=== PATIENT | female | born 1945 | race Caucasian/White ===

== ENCOUNTER → 2023-12-01 07:53 | Outpatient (REF) | payer MEDICARE, BC, SELFPAY | LOC: WDC 07:53 | PROVIDERS: ATTENDING PHYSICIAN Obstetrics & Gynecology; FAMILY PHYSICIAN Family Medicine | DX: Z12.31 Encounter for screening mammogram for malignant neoplasm of breast (principal) | CPT/HCPCS: 77063; 77067 ==

== ENCOUNTER → 2024-01-03 09:11 | Outpatient (REF) | payer MEDICARE, BC, SELFPAY | LOC: RAD 09:11 | PROVIDERS: ATTENDING PHYSICIAN Family Medicine | DX: M81.0 Age-related osteoporosis without current pathological fracture (principal) | CPT/HCPCS: 77080 ==

== ENCOUNTER → 2024-12-06 08:50 | Outpatient (REF) | payer MEDICARE, BC, SELFPAY | LOC: WDC 08:50 | PROVIDERS: ATTENDING PHYSICIAN Obstetrics & Gynecology; FAMILY PHYSICIAN Family Medicine | DX: Z12.31 Encounter for screening mammogram for malignant neoplasm of breast (principal) | CPT/HCPCS: 77063; 77067 ==

== ENCOUNTER 2025-06-28 16:53 | Inpatient (IN) | payer MEDICARE, BC, SELFPAY ==
[2025-06-28 13:37] VITALS: BP 157/88
[2025-06-28 16:00] VITALS: BP 142/68
[2025-06-28 16:04] VITALS: BMI 27.9
--- NOTE | 2025-06-28 16:05 | ED.GENMED ---
History of Present Illness
<Yun Stephens PA-C - Last Filed: 06/28/25 16:22>
General
Chief Complaint: Skin Problem
Source: patient
Exam Limitations: none
Time Seen by Provider: 06/28/25 14:40
Nursing documentation reviewed up to this point in time: agreed with
History of Present Illness
History of Present Illness:
see MDM
Past History
<Yun Stephens PA-C - Last Filed: 06/28/25 16:22>
Past History
ED Past Medical History: HTN, Hypercholesterolemia and Other (Colitis)
ED Past Surgical History: None
Social History
Tobacco: Non-smoker
Alcohol: None
Drug: None
Personal:
Living: with family
Employment: Retired
Family History
Family History: Other (Son sick with similar illness)
Review of Systems
<Yun Stephens PA-C - Last Filed: 06/28/25 16:22>
Review of Systems
Allergies reviewed?: Yes
All Other Systems: Not applicable
Phy Exam
<YEN Flores Last Filed: 06/28/25 16:22>
Physical Exam
Physical Exam:
ee MDM
Course
<Yun Stephens PA-C - Last Filed: 06/28/25 16:22>
Orders/Labs/Results
Orders:
Orders
06/28/25 15:31
Complete Blood Count/With Diff Urgent
Comprehensive Metabolic Panel Urgent
Ampicillin/Sulbactam 3 G [Unasyn] 3 gm 0.9% Sodium Chloride 100 ml [Nss] 100 ml IV NOW
06/28/25 15:45
Blood Culture Q30M
SANDHYA Source: Blood/Venous
Specimen Description:
06/28/25 16:15
Blood Culture Q30M
SANDHYA Source: Blood/Venous
Specimen Description:
Abnormal Lab Results
06/28/25
16:02
RBC 3.69 L 10^6/uL
(4.20-5.40)
Hgb 11.4 L g/dL
(12.0-16.0)
Hct 33.7 L %
(37.0-47.0)
Absolute Monos (auto) 0.7 H 10^3/uL
(0.1-0.6)
Lymphocytes % 16.1 L %
(20.5-51.1)
06/28/25 16:02
Vital Signs
Initial and Last Documented VS:
Initial Vital Signs
Temp Pulse Resp BP Pulse Ox
37.4 C 89 16 157/88 98
06/28/25 13:37 06/28/25 13:37 06/28/25 13:37 06/28/25 13:37 06/28/25 13:37
Last Documented Vital Signs
Temp Pulse Resp BP Pulse Ox
37.4 C 89 16 157/88 98
06/28/25 13:37 06/28/25 13:37 06/28/25 13:37 06/28/25 13:37 06/28/25 16:06
<Db Matos, - Last Filed: 06/28/25 16:16>
Orders/Labs/Results
Orders:
Orders
06/28/25 15:31
Complete Blood Count/With Diff Urgent
Comprehensive Metabolic Panel Urgent
Ampicillin/Sulbactam 3 G [Unasyn] 3 gm 0.9% Sodium Chloride 100 ml [Nss] 100 ml IV NOW
06/28/25 15:45
Blood Culture Q30M
SANDHYA Source: Blood/Venous
Specimen Description:
06/28/25 16:15
Blood Culture Q30M
SANDHYA Source: Blood/Venous
Specimen Description:
Abnormal Lab Results
06/28/25
16:02
RBC 3.69 L 10^6/uL
(4.20-5.40)
Hgb 11.4 L g/dL
(12.0-16.0)
Hct 33.7 L %
(37.0-47.0)
Absolute Monos (auto) 0.7 H 10^3/uL
(0.1-0.6)
Lymphocytes % 16.1 L %
(20.5-51.1)
06/28/25 16:02
Vital Signs
Initial and Last Documented VS:
Initial Vital Signs
Temp Pulse Resp BP Pulse Ox
37.4 C 89 16 157/88 98
06/28/25 13:37 06/28/25 13:37 06/28/25 13:37 06/28/25 13:37 06/28/25 13:37
Last Documented Vital Signs
Temp Pulse Resp BP Pulse Ox
37.4 C 89 16 157/88 98
06/28/25 13:37 06/28/25 13:37 06/28/25 13:37 06/28/25 13:37 06/28/25 16:06
Omarlt;Yun Stephens PA-C - Last Filed: 06/28/25 16:22>
MDM/Problems Addressed
Differential Diagnosis Includes:
see MDM
MDM/Problems Addressed:
Note:
CHIEF COMPLAINT(S)
Right arm swelling and redness following a cat scratch.
HISTORY OF PRESENT ILLNESS
The patient is a 79-year-old female with h/o crohn's on mercaptopurine who presents with significant swelling and redness in her right hand up her arm following a cat scratch. The incident occurred yesterday morning while attempting to retrieve her
cat from under the bed. The cat scratched her with its claws and then bit her R wrist volar region, resulting in rapid swelling described as 'twice the size' today. The severe swelling indicates lymphatic involvement, as it tracks along a lymph node
path potentially leading to the heart. She experienced dizziness and continued to perform household activities. She was evaluated at an urgent care facility and then advised to seek further medical attention at the hospital due to the severity of
the symptoms.
she denies inabilty to move the wrist, lymph node swelling appreciated, fever, chills, rigors, cp, sob
PAST MEDICAL AND SURGICAL HISTORY
The patient has Crohns disease and has undergone dermatological procedures for lesion removal yesterday but has no history of cardiac problems or diabetes. The patient mentions a previous infection following a camper spot removal from her leg.
SOCIAL DETERMINANTS AFFECTING HEALTH
The patient lives with a high-sensitivity cat which is on Prozac.
ALLERGIES
No known allergies to antibiotics.
MEDICATIONS
The patient is currently on Mercaptopurine for Crohns disease at a reduced dose of 25 mg to minimize the risk of infection.
PHYSICAL EXAM
GENERAL: Alert , in no apparent distress
EYE: pupils equal and reactive
NECK: Supple
ENT: o/p clr, mmm.
CARDIAC: Regular rate and rhythm .
LUNGS: Clear breath sounds bilaterally, no acute respiratory distress, no wheezes/rales/rhonchi
ABDOMEN: Soft, without focal tenderness, no r/g, no cvat, normal bowel sounds
NEUROLOGICAL: Alert and oriented, no focal neuro deficits
SKIN: Warm and dry, patient has a small puncture wound to the volar aspect of her right wrist with no dorsal hand involvement but she has significant erythema and some soft tissue swelling of the wrist and volar forearm distally as well as a streak
of lymphatic erythema that spreads up into her upper arm but stops before her armpit
She has full tender painless range of motion of the elbow, wrist, shoulder
MUSCULOSKELETAL: As above, full range of motion of the joints
PSYCH: Normal and appropriate interaction.
Nursing notes reviewed and vital signs reviewed.
PROBLEM LIST
Acute:
- Right arm cellulitis secondary to cat scratch.
- Possible lymphangitis.
Chronic:
- Crohns disease
PLAN
- Admission for intravenous antibiotic therapy with Unasyn (Ampicillin/Sulbactam), a penicillin-based medication.
- Monitoring of the swelling progression, with markings to assess.
- Continue Crohns disease management with current Mercaptopurine dosing.
- Ensure the provision of a hospital room for overnight observation and continued treatment.
DIFFERENTIAL DIAGNOSIS
The Differential Diagnosis includes, in no particular order and is not limited to:
1. Cellulitis
2. Lymphangitis
3. Cat scratch disease
4. Vasculitis
5. Allergic reaction
6. Deep vein thrombosis
7. Abscess formation
8. Septic arthritis
9. Soft tissue sarcoma
10. Thrombophlebitis
Note:
Disposition:
SUMMARY OF ENCOUNTER
The patient, a 79-year-old female, presented to the emergency department due to rapid progression of redness and swelling in the right arm following a cat scratch and bite. She is immunocompromised due to Crohns disease and is on Mercaptopurine. The
swelling progressed in a lymphangitis-type pattern with a noticeable erythematous streak extending near the armpit. She reported minimal pain but experienced lightheadedness and fatigue. Given her immunocompromised state and the rapid progression of
symptoms, admission for intravenous antibiotic therapy and observation was deemed necessary.
DISPOSITION
Admit
ASSESSMENT
The patients presentation is consistent with cellulitis and possible lymphangitis secondary to a cat scratch and bite.
PLAN
The patient will be admitted for intravenous antibiotic therapy with Ampicillin/Sulbactam (Unasyn) and for observation of her symptoms.
MEDICATION RECONCILIATION
The patient will receive intravenous Ampicillin/Sulbactam (Unasyn) for her condition during the hospital stay. She is also advised to continue her current dose of Mercaptopurine for Crohns disease management.
MEDICAL DECISION MAKING
- Complexity of Data Reviewed: Chronic conditions affecting care include Crohns disease. Differential diagnosis includes cellulitis, lymphangitis, cat scratch disease, vasculitis, allergic reaction, deep vein thrombosis, abscess formation, septic
arthritis, soft tissue sarcoma, and thrombophlebitis.
- Data:
Category 1: None mentioned in the transcript.
Category 2: No independent interpretations of radiology or testing were mentioned in the transcript.
Category 3: None mentioned in the transcript.
-Risk: The decision for hospital admission was made due to the patients immunocompromised status and the severity of the symptoms. This includes antibiotic management which requires monitoring for potential complications related to the therapy and
the underlying condition of Crohns disease.
DIAGNOSIS
- Cellulitis of right upper limb secondary to cat bite, ICD-10: L03.113
- Immunocompromised patient with Crohns disease, ICD-10: K50.90
<Yun Stephens PA-C - Last Filed: 06/28/25 16:22>
*Pulse Oximetry
SaO2: 98
Oxygen Mode of Delivery: Room air
Patient hypoxic: no (98)
*Critical Care Note
Total Time (30-74mins, 75-104mins- exclusive of procedures): Not Applicable
ED Attending Note
<Yun Stephens PA-C - Last Filed: 06/28/25 16:22>
-
Portions of this chart may have been created with voice recognition software.� Occasional wrong word or��sound alike� substitutions may have occurred due to the inherent limitations of voice recognition software.
<Db Matos DO - Last Filed: 06/28/25 16:16>
ED Attending Note
Patient seen and examined by attending physician: Yes
I performed the substantive portion of visit, reviewed & personally made and approve the management plan that is documented in note by myself or IGNACIO.: Yes
ED Attending Note:
I evaluated the patient at bedside. The patient has a normal white blood cell count and vital signs are not consistent with sepsis however she has rather significant cellulitic changes with lymphangitic spread from the distal forearm up the right
upper extremity proximal to the elbow. Planning IV Unasyn/admission to the hospital
Discharge Plan
Departure
Patient Disposition: Admit
Date of Disposition: 06/28/25
Time of Disposition: 16:06
Admit to: Med/Surg
Presentation/result/management discussed w/ accepting /DO: Hospitalist
Condition: Fair
Covid-19: Not Applicable
Discharge Problem:
Cat bite, Lymphangitis
Prescriptions:
No Action
lansoprazole [Prevacid] 30 MG capsule,delayed release(DR/EC)
30 mg PO DAILY
simvastatin 20 MG tablet
20 mg PO QPM
mercaptopurine 50 MG tablet
25 mg PO DAILY
bupropion HCl [Wellbutrin SR] 150 MG tablet sustained-release 12 hr
150 mg PO BID
calcium carbonate [Oyster Shell Calcium 500] 500 MG tablet
500 mg PO BID 0RF
zinc sulfate 220 MG capsule
220 mg PO DAILY Qty: 20 0RF
lisinopril 5 MG tablet
5 mg PO DAILY Qty: 0 0RF
Rx Instructions:
Start taking again if BP is over 140 mm Hg
tizanidine 4 mg Tablet
4 mg PO HSPRN PRN (Reason: spasms)
tramadol 50 mg Tablet
50 mg PO TID
gabapentin 300 mg Capsule
300 mg PO BID
duloxetine 60 mg Capsule,Delayed Release(Dr/Ec)
60 mg PO DAILY
cholecalciferol (vitamin D3) [Vitamin D3] 25 mcg (1,000 unit) Tablet
25 mcg PO DAILY
famotidine 40 MG tablet
40 mg PO HS
ascorbic acid (vitamin C) [Vitamin C] 500 MG tablet
500 mg PO DAILY
Referrals:
Zuleyma Lew DO [Family Provider, Family Practice]
Interventions
Interventions:
*Risk Screen - Suicide Last Done: 06/28/25 13:37
*Neglect/Abuse Screening Last Done: 06/28/25 13:37
Discharge Date and Time
Print Language: SWISS
[2025-06-28 16:13] LABS: Hematocrit 33.7 % (37.0-47.0); Hemoglobin 11.4 g/dL (12.0-16.0); Mean Corp Hgb Conc. 33.8 g/dL (33.0-37.0); Mean Corpuscular Volume 91.3 fL (81.0-99.0); Nucleated Red Blood Cells % 0 %; Platelet Count 225 10^3/uL (130-400); Red Cell Dist. Width 13.4 % (11.5-14.5)
--- NOTE | 2025-06-28 16:23 | HPS.HSE ---
Addendum entered and electronically signed by Jade Martínez MD 06/28/25 17:46:
Seen and examined and discussed with nurse practitioner in detail I am in agreement with plan and management mentioned by nurse practitioner.
Seen and examined, accompanied by the daughter at the bedside, she is awake, alert oriented x 3, presented to the hospital after she had bitten by her cat yesterday while she was trying to put out under her bed to take it to the vet.
Developed right hand proximally around the thenar area and right forearm painful erythema with mild swelling, admittedly extremely painful last night otherwise denies any fever or chill or cough or congestion able to move her finger in her radial
pulses palpable and have good capillary refill.
Vital signs reviewed
Physical exam:
General: Awake, alert and oriented x3, not in distress and holds appropriate conversation.
HEENT: No active discharge, ecchymosis or bruising, moist lips, tongue and mucous membrane.
Eyes: No discharge or red conjunctiva, no nystagmus, pupils are reactive and equal
Neck:Supple, no JVD no bruit no goiter.
Respiratory: Normal AP contour and diameter, normal chest wall movement, normal respiratory effort, no respiratory distress,
Lungs: Good air entry bilaterally, no wheezing or rhonchi, no rales or crackles
Heart: S1, S2 regular, normal rate, no added sound.
Gastrointestinal: Positive bowel sounds, soft, nontender, no guarding or rigidity or organomegaly
Musculoskeletal: Painful erythematous left hand and extend proximally to left, no chest wall abnormality or tenderness. All joints and extremities have good range of motion, no muscle tenderness or any joint swelling or tenderness.
Extremities: Erythematous right hand and extended proximally to forearm and arm, No pitting edema, good peripheral pulses, good range of motion
Workup including labs, imaging, EKG and archive reviewed.
Assessment and plan:
60 But into cellulitis of the right upper extremity:
No evidence of compartment syndrome
Elevation of the right arm was discussed with the patient and the daughter
Continue IV antibiotic
Close monitoring of neurovascular compartment if any worsening of swelling may need evaluation by hand surgeon.
Tylenol as needed.
Hypertension: Continue lisinopril monitor vital signs
Dyslipidemia on simvastatin we will continue
All discussed with the patient and the family
Discussed with nurse practitioner
Original Note:
Family Physician
-
Family Physician: Zuleyma Lew
Chief Complaint
-
right arm ame bite.
History of Present Illness
79-year-old female with h/o crohn's on mercaptopurine, depression, anxiety, HTN, GERD< HLD who presents with significant swelling and redness in her right hand up her arm following a cat scratch. The incident occurred yesterday morning while
attempting to retrieve her cat from under the bed. The cat scratched her with its claws and then bit her R wrist volar region, resulting in rapid swelling described as 'twice the size' today. she noticed last night redness spreading upto her arm
today morning. She experienced dizziness and continued to perform household activities. She was evaluated at an urgent care facility and then advised to seek further medical attention at the hospital due to the severity of the symptoms. denied
fever, chills, chest pain, sob.denied BENITEZ. denied abdominal pain,n,v,d. denied dysuria or hematuria.
Patient received a dose of Unasyn, tetanus shot in ER. Blood culture sent from ER. Admitting for further manage
Medical History
Past Medical History
Past Medical History: Reports Other
Additional Past Medical History:
Anxiety, Crohn's disease, hypertension, thoracic back pain, hyperlipidemia, GERD
Past Surgical History: Reports Other
Additional Past Surgical History:
Right hand contraction
Social History
Tobacco: Non-smoker
Alcohol: Occasional
Drug: None
Living: With Family
Family History
Family History: Not pertinent
Allergies / Home Medications
Allergies reflects when Allergies were last updated in [facility].
Home Medications with original date entered in [facility]
Allergy/Medication List:
Allergies
Allergy/AdvReac Type Severity Reaction Status Date / Time
latex (Latex) Allergy Intermediate Rash Verified 06/28/25 13:37
Sulfa (Sulfonamide Allergy Rash Verified 06/28/25 13:37
Antibiotics)
sulfamethoxazole Allergy Rash Verified 06/28/25 13:37
trimethoprim Allergy Rash Verified 06/28/25 13:37
Home Medications
lansoprazole 30 mg capsule,delayed release (Prevacid) 30 mg PO DAILY Gastrointestinal issue 03/26/11
simvastatin 20 mg tablet 20 mg PO QPM High cholesterol 05/17/20
bupropion HCl 150 mg tablet,12 hr sustained-release (Wellbutrin SR) 150 mg PO BID Mental health 05/18/20
mercaptopurine 50 mg tablet 25 mg PO DAILY Crohn's Disease 05/18/20
calcium carbonate (Oyster Shell Calcium 500) 500 mg PO BID 05/20/20
lisinopril 5 mg tablet 5 mg PO DAILY Blood pressure ##0 05/20/20
zinc sulfate 50 mg zinc (220 mg) capsule 220 mg (4.4 x 50 mg zinc (220 mg)) PO DAILY #20 caps 05/20/20
ascorbic acid (vitamin C) 500 mg tablet (Vitamin C) 500 mg PO DAILY 06/28/25
cholecalciferol (vitamin D3) 25 mcg (1,000 unit) tablet (Vitamin D3) 25 mcg PO DAILY 06/28/25
duloxetine 60 mg capsule,delayed release 60 mg PO DAILY 06/28/25
famotidine 40 mg tablet 40 mg PO HS 06/28/25
gabapentin 300 mg capsule 300 mg PO BID 06/28/25
tizanidine 4 mg tablet 4 mg PO HSPRN PRN spasms 06/28/25
tramadol 50 mg tablet 50 mg PO TID 06/28/25
Review of Systems
-
Constitutional: Reports No Symptoms
EENT: Reports No Symptoms
Respiratory: Reports No Symptoms
Cardiac: Reports No Symptoms
Abdomen/GI: Reports No Symptoms
: Reports No Symptoms
Musculoskeletal: Reports No Symptoms
Skin: Reports Other (Right hand redness, swelling and cat bite penny)
Neurological: Reports No Symptoms
Endocrine: Reports No Symptoms
Hematologic/Lymphatic: Reports No Symptoms
Psych: Reports No Symptoms
Physical Exam
Vital Signs
Vital Signs
Temp Pulse Resp BP Pulse Ox
99.4 F 89 16 157/88 98
06/28/25 13:37 06/28/25 13:37 06/28/25 13:37 06/28/25 13:37 06/28/25 16:06
Physical Exam
General: Well Developed, Well Nourished and No Apparent Distress
HEENT: NormoCephalic, Moist mucous membranes and Atraumatic
Respiratory: Clear
Cardiac: S1/S2 and Regular Rhythm; No Murmur or Rub
GI: Soft, Non Tender, Non Distended and Normal Bowel Sounds; No Organomegaly
Rectal: Deferred by Provider
Musculoskeletal: No Clubbing, No Cyanosis and No Edema
Skin: Rash and Other (small puncture wound to the volar aspect of her right wrist with no dorsal hand involvement but she has significant erythema and some soft tissue swelling of the wrist and volar forearm distally as well as a streak of lymphatic
erythema that spreads up into her upper arm but stops before her armpit)
Neuro: AO x 3 and Nonfocal/grossly intact
Psych: Calm
Laboratory Results
-
06/28/25 16:02
Data Reviewed
-
Lab Data: Labs Reviewed by me
Impression/Plan
-
# Right upper extremities cellulitis/lymphangitis
- IV Unasyn
- Tylenol p.o. for fever up
- Patient received tetanus shot in ER
-Blood culture sent from ER
# Anemia of chronic disease
- Hemoglobin stable at 11.4
-Continue to monitor
#Essential hypertension. Blood pressure is stable
- Lisinopril continued
#Chron's disease
- On mercaptopurine
# Hyperlipidemia. Continue Zocor.
# GERD
- Prevacid, famotidine continued
# Depression/anxiety
-Duloxetine, bupropion continued
# DVT prophylaxis. Lovenox subcutaneous.
[2025-06-28 16:35] LABS: ALT (SGPT) 13 U/L (0-35); AST (SGOT) 20 U/L (14-36); Albumin 4.2 g/dl (3.5-5.0); Alkaline Phosphatase 108 U/L (38-126); Blood Urea Nitrogen 22 mg/dl (7-17); Calcium 9.7 mg/dl (8.4-10.2); Carbon Dioxide 26 mmol/L (22-30); Chloride 105 mmol/L (98-107); Estimated Creatinine Clearance 48 ml/min; Glucose 93 mg/dl (70-99); Potassium 4.0 mmol/L (3.5-5.1); Sodium 138 mmol/L (135-145); Total Protein 6.6 g/dl (6.3-8.2); eGFR > 60.00
[2025-06-28] MEDS: UNASYN IV ×2 (17:08→21:01)
[2025-06-28] MEDS: ADACEL 0.5 ML IM (17:08)
[2025-06-28 18:00] VITALS: BP 139/94
[2025-06-28 19:55] VITALS: BP 160/74; BMI 26.4
[2025-06-28] MEDS: LOVENOX 40 MG SC (20:57)
[2025-06-28] MEDS: NEURONTIN 300 MG PO (20:59)
[2025-06-28] MEDS: LIPITOR 10 MG PO (21:00)
[2025-06-28] MEDS: WELLBUTRIN SR (12 hour sustained release) 150 MG PO (21:02)
[2025-06-28] MEDS: ULTRAM 50 MG PO (21:04)
[2025-06-28] MEDS: PEPCID 40 MG PO (21:05)
[2025-06-28 23:16] VITALS: BP 155/79
--- NOTE | 2025-06-28 23:50 | PTCARENOTE ---
Pt arrived around 20:30 via stretcher and ambulated to bed. Pt oriented to Unit, side rails up, bed set in lowest position, call davis within reach. Will continue plan of care.
[2025-06-29] MEDS: UNASYN IV ×4 (01:57→20:54)
[2025-06-29 06:36] LABS: Hematocrit 33.2 % (37.0-47.0); Hemoglobin 11.2 g/dL (12.0-16.0); Mean Corp Hgb Conc. 33.7 g/dL (33.0-37.0); Mean Corpuscular Volume 91.5 fL (81.0-99.0); Platelet Count 204 10^3/uL (130-400); Red Cell Dist. Width 13.3 % (11.5-14.5)
[2025-06-29 07:25] VITALS: BP 136/72
--- NOTE | 2025-06-29 08:46 | W.PN.HOSP.TC ---
Today's Communication/Plan
-
Continue Unasyn
Assessment / Plan
Assessment / Plan
79-year-old female presents with right arm cellulitis secondary to cat bite.
Right upper extremity cellulitis secondary to cat bite
-- Has improved significantly overnight, afebrile and no white count
-- Continue Unasyn
# Anemia of chronic disease -hemoglobin stable
# Essential hypertension -continue home lisinopril
#Crohn's disease -continue mercaptopurine
#Hyperlipidemia - cont statin
#GERD - famotidine
#Depression/anxiety - cont wellbutrin, duloxetine
#Back pain - cont gabapentin, tramadol
DVT Lovenox
Full code
Anticipated Discharge: 24 - 48 hours
Subjective/Interval History
-
Date of Service: June 29, 2025
Overall feels well. Significant decrease in size of cellulitis per patient.
Objective Data
-
Labs:
Laboratory Results
06/29/25
06:20
WBC 5.5
Hgb 11.2 L
Hct 33.2 L
Plt Count 204
Vital Signs:
Vital Signs
Temp Pulse Resp BP Pulse Ox
99.0 F 76 16 136/72 97
06/29/25 07:25 06/29/25 07:25 06/29/25 07:25 06/29/25 07:25 06/29/25 07:25
Review of Systems
-
History Source: Patient
Respiratory: Reports No Symptoms
Cardiac: Reports No Symptoms
Abdomen/GI: Reports No Symptoms
Musculoskeletal: Reports Other
Skin: Reports Other (Tenderness along areas of cellulitis down the right proximal and distal medial arm)
Neuro: Reports No Symptoms
Physical Exam
-
General: No Apparent Distress and Comfortable
Respiratory: Clear to Auscultation
Cardiac: Regular Rhythm and S1/S2
GI: Soft, Nontender, Nondistended and Normal Bowel Sounds
Skin: Other (Decreased areas of erythema along right proximal and distal medial arm from drawn on lines representing prior areas of erythema. Puncture wound at right thenar eminence, no purulent discharge)
Neuro: AO x 3
Psych: Calm
--- NOTE | 2025-06-29 08:54 | W.PN.UPDATE ---
Update Note
Progress Note Update
I saw and evaluated the patient. I reviewed the resident�s note and agree with findings and plan as documented in the resident�s note.
No new complaints.
Gen: NAD, AAOx3.
Eyes: EOMI, PERRLA, no scleral icterus.
Neck: supple.
CV: RRR, +S1/S2, no m/r/g.
Resp: CTAB, no rales, wheezes, or rhonchi.
Abd: +BS, soft, NT, ND
Skin: Puncture wound without discharge in the right thenar eminence. Right forearm cellulitis
Neuro: CN 2-12 intact, non-focal.
Psych: Normal mood and affect.
RUE cellulitis due to cat bite:
-cont Unasyn
Anemia of chronic disease: Hb stable
Essential HTN: cont ACEi
Crohn's disease: cont Purinethol
HLD: cont statin
GERD: cont PPI/H2-harpreet
Depression/anxiety: cont Duloxetine/bupropion
FULL/Lovenox
[2025-06-29] MEDS: PURINETHOL 25 MG PO (09:16)
[2025-06-29] MEDS: ULTRAM 50 MG PO ×3 (09:16→21:00)
[2025-06-29] MEDS: NEURONTIN 300 MG PO ×2 (09:17→20:54)
[2025-06-29] MEDS: PREVACID 30 MG PO (09:17)
[2025-06-29] MEDS: WELLBUTRIN SR (12 hour sustained release) 150 MG PO ×2 (09:18→20:55)
[2025-06-29] MEDS: ZESTRIL 5 MG PO (09:18)
[2025-06-29] MEDS: CYMBALTA DELAYED RELEASE 60 MG PO (09:18)
[2025-06-29] MEDS: FLUSH (NSS) 1 FLUSH IV (09:19)
--- NOTE | 2025-06-29 13:30 | CM ---
Patient seen at bedside
IA completed
Dx: RUE cellulitis due to cat bite
Patient lives in a 2 story home with grand-daughter currently living with her, [address], 13 steps to bedroom, full bath 1st floor
PLOF: independent, drives
Denies DME
Denies VN/Rehab
Denies insecurities
PCP: Zuleyma Lew
Pharmacy: [facility]
PLAN: Home, no needs anticipated
[2025-06-29] MEDS: FLUSH (NSS) 2 FLUSH IV (14:57)
[2025-06-29 15:20] VITALS: BP 92/46
[2025-06-29] MEDS: LIPITOR 10 MG PO (17:21)
[2025-06-29] MEDS: LOVENOX 40 MG SC (17:21)
[2025-06-29 17:47] VITALS: BP 122/67
[2025-06-29] MEDS: PEPCID 40 MG PO (20:57)
[2025-06-29] MEDS: ATIVAN 0.5 MG PO (22:41)
[2025-06-29 22:43] VITALS: BP 109/57
[2025-06-30] MEDS: UNASYN IV ×3 (02:52→13:54)
[2025-06-30 07:00] VITALS: BP 106/63
--- NOTE | 2025-06-30 07:48 | W.PN.UPDATE ---
Update Note
Progress Note Update
I saw and evaluated the patient. I reviewed the resident�s note and agree with findings and plan as documented in the resident�s note.
No new complaints.
Gen: NAD, Awake and alert
Eyes: EOMI, PERRLA, no scleral icterus.
Neck: supple.
CV: remains RRR, +S1/S2, no m/r/g.
Resp: remains CTAB, no rales, wheezes, or rhonchi.
Abd: +BS, soft, NT, ND
Skin: Puncture wound without discharge in the right thenar eminence. Right forearm cellulitis has nearly resolved.
Neuro: CN 2-12 intact, non-focal.
Psych: Normal mood and affect.
RUE cellulitis due to cat bite:
-has been on Unasyn, d/c on Augmentin
Anemia of chronic disease: Hb stable
Essential HTN: cont ACEi
Crohn's disease: cont Purinethol
HLD: cont statin
GERD: cont PPI/H2-harpreet
Depression/anxiety: cont Duloxetine/bupropion
FULL/Lovenox
Total time spent on d/c = 31 min. This included today's physical exam, progress note, review of laboratory and diagnostic data, preparation of discharge documents and prescriptions, and discussions about the pt's hospital course and discharge plan
with the patient and other medical claims processor involved in the patient's care.
[2025-06-30 07:56] VITALS: BP 104/57
[2025-06-30] MEDS: PREVACID 30 MG PO (07:57)
[2025-06-30] MEDS: NEURONTIN 300 MG PO (07:58)
[2025-06-30] MEDS: ULTRAM 50 MG PO (07:58)
[2025-06-30] MEDS: WELLBUTRIN SR (12 hour sustained release) 150 MG PO (07:58)
[2025-06-30] MEDS: CYMBALTA DELAYED RELEASE 60 MG PO (07:58)
[2025-06-30] MEDS: ZESTRIL 5 MG PO (07:58)
[2025-06-30] MEDS: PURINETHOL 25 MG PO (07:59)
[2025-06-30 09:24] LABS: Hematocrit 33.3 % (37.0-47.0); Hemoglobin 11.3 g/dL (12.0-16.0); Mean Corp Hgb Conc. 33.9 g/dL (33.0-37.0); Mean Corpuscular Volume 93.3 fL (81.0-99.0); Platelet Count 217 10^3/uL (130-400); Red Cell Dist. Width 13.2 % (11.5-14.5)
--- NOTE | 2025-06-30 09:29 | W.PN.HOSP.TC ---
Today's Communication/Plan
-
Patient is stable for discharge
Start Augmentin 875/125mg PO every 12 hours for 7 more days as outpatient after checking CrCl
Continue to monitor the patient
Assessment / Plan
Assessment / Plan
79-year-old female presents with right arm cellulitis secondary to cat bite.
#Right upper extremity cellulitis secondary to cat bite
-- Has improved significantly overnight, afebrile and no white count
-- Transition from Unasyn to Augmentin 875/125mg PO every 12 hours for 7 more days as outpatient
# Anemia of chronic disease -hemoglobin stable
# Essential hypertension -continue home lisinopril
#Crohn's disease -continue mercaptopurine
#Hyperlipidemia - cont statin
#GERD - famotidine
#Depression/anxiety - cont wellbutrin, duloxetine
#Back pain - cont gabapentin, tramadol
DVT Lovenox
Full code
Anticipated Discharge: Today
Subjective/Interval History
-
Date of Service: June 30, 2025
The patient started some tenderness and redness on the site, but much improved. She denies fever, and difficulty moving the affected arm. Disposition is home.
Objective Data
-
Labs:
Laboratory Results
06/30/25
07:33
WBC 4.2 L
Hgb 11.3 L
Hct 33.3 L
Plt Count 217
Vital Signs:
Vital Signs
Temp Pulse Resp BP Pulse Ox
98.5 F 71 18 104/57 95
06/30/25 07:00 06/30/25 07:58 06/30/25 07:00 06/30/25 07:58 06/30/25 07:56
I&O
06/29/25 06/30/25 07/01/25
06:59 06:59 06:59
Intake Total 1320 / 1320 480 / 480
Balance 1320 / 1320 480 / 480
Review of Systems
-
History Source: Patient
Constitutional: Denies Fever or Weakness
Respiratory: Reports No Symptoms
Cardiac: Reports No Symptoms
Abdomen/GI: Reports No Symptoms
Musculoskeletal: Reports Joint Pain (bilateral shoulder, left knee-- chronic)
Skin: Reports Other (Mild tenderness along areas of cellulitis down the right proximal and distal medial arm)
Neuro: Reports No Symptoms
Physical Exam
-
General: No Apparent Distress and Comfortable
Respiratory: Clear to Auscultation
Cardiac: Regular Rhythm and S1/S2
GI: Soft, Nontender, Nondistended and Other (Hypoactive bowel sound)
Musculoskeletal: No Clubbing and No Cyanosis
Skin: Other (Decreased areas of erythema along right proximal and distal medial arm from drawn on lines representing prior areas of erythema. Puncture wound at right thenar eminence, no purulent discharge)
Neuro: AO x 3
Psych: Calm
--- NOTE | 2025-06-30 10:13 | W.DCSUMMARY ---
Discharge Summary
Discharge Data
Date of Admission: 06/28/25
Date of Discharge: 06/30/25
-
Pending Results: No
Hospital Course
Discharging Physician : Trey Alex MD, Aleena Brady MD
Disposition : Home
Primary care physician : Dr. Zuleyma Lew
Principal Discharge diagnosis : Right upper extremity cellulitis secondary to Cat Bite
Chronic Discharge diagnosis : Anemia of chronic disease, Essential hypertension, Crohn's disease, Hyperlipidemia, GERD, Depression/anxiety, Chronic Pain
Hospital Course : The patient, a 79-year-old female, presented to the emergency department due to rapid progression of redness and swelling in the right arm following a cat scratch and bite. She is immunocompromised due to Crohn's disease and is on
Mercaptopurine. The swelling progressed in a lymphangitis-type pattern with a noticeable erythematous streak extending near the armpit. She reported minimal pain but experienced lightheadedness and fatigue.
At the ED, Ampicillin/Sulbactam 3 G [Unasyn] 3 gm IV initiated. No leukocytosis appreciated. BP elevated at 157/88, but heart rate stable, and temperature was not elevated. Given her immunocompromised state and the rapid progression of symptoms,
admission for intravenous antibiotic therapy and observation was deemed necessary.
The following problems were addressed during this admission:
#Right upper extremity cellulitis secondary to cat bite
The patient was continued on Unasyn 3g. Affected area was demarcated, and monitored for signs of progression. The patient was noted to have significant significantly improved overnight, was afebrile, with normal WBC count. Erythema, pain and
swelling noticeably reduced. The patient will continue Augmentin 875/125mg PO every 12 hours for 7 more days as outpatient.
# Anemia of chronic disease
Hemoglobin stable
# Essential hypertension
[employer] lisinopril was continued
#Crohn's disease
[employer] mercaptopurine was continued
#Hyperlipidemia -
Atorvastatin Calcium 10mg given due to availability, will resume [employer] statin upon discharge.
#GERD
Continued on [employer] famotidine and lansoprazole
#Depression/anxiety
Continued on [employer] Wellbutrin, and Duloxetine
#Chronic Pain
Continued on gabapentin, and tramadol
Important imaging findings :
Procedure findings :
Discharge Plan
-
Patient Disposition: Home (Routine Discharge)
Discharge Diagnosis/Procedures: Right upper extremity cellulitis secondary to Cat Bite
Condition: Good
Diet: Low Cholesterol and Low Sodium
Activity: As tolerated
Driving Restrictions: As prior to admission
Bathing Restrictions: OK to Shower
Referrals:
Zuleyma Lew DO [Family Provider, Family Practice] - in less than 1 week
Additional Discharge Medication Instructions: Take Amoxicillin/Clavulanate 875/125mg 1 tablet every 12 hours, by mouth for 8 more days (last day: 07/08/2025)
Clean the affected area with mild soap and water.
Call PCP or go to ER for fever, chills, accompanied by increasing pain, redness, or swelling in the area.
Prescriptions:
New
amoxicillin-pot clavulanate 875-125 mg tablet
1 tab PO Q12H Qty: 17 0RF
Continued
lansoprazole [Prevacid] 30 MG capsule,delayed release(DR/EC)
30 mg PO DAILY
simvastatin 20 MG tablet
20 mg PO QPM
mercaptopurine 50 MG tablet
25 mg PO DAILY
bupropion HCl [Wellbutrin SR] 150 MG tablet sustained-release 12 hr
150 mg PO BID
calcium carbonate [Oyster Shell Calcium 500] 500 MG tablet
500 mg PO BID 0RF
zinc sulfate 220 MG capsule
220 mg PO DAILY Qty: 20 0RF
lisinopril 5 MG tablet
5 mg PO DAILY Qty: 0 0RF
Rx Instructions:
Start taking again if BP is over 140 mm Hg
tizanidine 4 mg Tablet
4 mg PO HSPRN PRN (Reason: spasms)
tramadol 50 mg Tablet
50 mg PO TID
gabapentin 300 mg Capsule
300 mg PO BID
duloxetine 60 mg Capsule,Delayed Release(Dr/Ec)
60 mg PO DAILY
cholecalciferol (vitamin D3) [Vitamin D3] 25 mcg (1,000 unit) Tablet
25 mcg PO DAILY
famotidine 40 MG tablet
40 mg PO HS
ascorbic acid (vitamin C) [Vitamin C] 500 MG tablet
500 mg PO DAILY
Discharge Orders:
Discharge Patient (As Directed); Ordered 06/30/25
Ordered By: Trey Alex
Discharge Date and Time
Discharge Date/Time: 06/30/25 15:37
Print Language: SETSWANA
[2025-06-30 10:16] LABS: Blood Urea Nitrogen 14 mg/dl (7-17); Calcium 9.2 mg/dl (8.4-10.2); Carbon Dioxide 29 mmol/L (22-30); Chloride 106 mmol/L (98-107); Estimated Creatinine Clearance 49 ml/min; Glucose 94 mg/dl (70-99); Potassium 4.1 mmol/L (3.5-5.1); Sodium 140 mmol/L (135-145); eGFR > 60.00
--- NOTE | 2025-06-30 13:17 | CM ---
Patient seen at bedside with daughter
IMM Explained & signed. In chart
per note stable for discharge
PLAN: Home, no needs
daughter to transport
[2025-06-30 15:00] VITALS: BP 106/66
== END 2025-06-30 15:37 | disposition home or self-care (01) | DRG 603 ==
LOC: 3 WEST ACU 16:53
PROVIDERS: Physician Assistant; Registered Nurse; ADMITTING PHYSICIAN Internal Medicine; ATTENDING PHYSICIAN Internal Medicine; EMERGENCY PHYSICIAN Emergency Medicine; FAMILY PHYSICIAN Family Medicine
PROC: 3E0234Z Introduction of Serum, Toxoid and Vaccine into Muscle, Percutaneous Approach (ICD-10-PCS; 2025-06-28)
DX: L03.113 Cellulitis of right upper limb (principal); K50.90 Crohn's disease, unspecified, without complications; D84.9 Immunodeficiency, unspecified; M79.89 Other specified soft tissue disorders; E78.00 Pure hypercholesterolemia, unspecified; I10 Essential (primary) hypertension; F41.9 Anxiety disorder, unspecified; F32.A Depression, unspecified; D63.8 Anemia in other chronic diseases classified elsewhere; G89.29 Other chronic pain; K21.9 Gastro-esophageal reflux disease without esophagitis; S60.511A Abrasion of right hand, initial encounter; W55.03XA Scratched by cat, initial encounter; W55.01XA Bitten by cat, initial encounter; Y93.9 Activity, unspecified; Y92.003 Bedroom of unspecified non-institutional (private) residence as the place of occurrence of the external cause; Z60.2 Problems related to living alone; Z88.2 Allergy status to sulfonamides; Z88.1 Allergy status to other antibiotic agents; Z91.040 Latex allergy status; Z23 Encounter for immunization
CPT/HCPCS: 80048; 80053; 85025; 85027; 87040; 90471; 90715; 96365; 99284